=== PATIENT | female | born 1970 | race Two or more races ===

== ENCOUNTER 2024-06-20 11:15 | Inpatient (IN) | payer MEDICAID, OTHER ==
[~2024-06-20] VITALS: Ht 157.5 cm; Wt 73.5 kg
[2024-06-20 11:48] LABS: Basophils # (auto) 0.2 10 ^3/uL (0-0.2); Eosinophils # (auto) 0.1 10 ^3/uL (0-0.8); Eosinophils % (auto) 0.3 % (0.0-7.0); Hemoglobin 13.7 g/dL (12.2-16.2); Nucleated Red Blood Cells % 0.1 %
[2024-06-20 11:50] LABS: Urine Bacteria None Seen /hpf (None Seen)
[2024-06-20 11:50] LABS: Hematocrit 41.3 % (36.0-46.0); Lymphocytes # (auto) 3.5 10 ^3/uL (0.4-5.4); Lymphocytes % (auto) 19.6 % (10.0-50.0); Mean Corpuscular Hemoglobin 24.6 pg (28.0-32.0); Mean Corpuscular Hgb Conc. 33.1 g/dL (32.0-36.0); Mean Corpuscular Volume 74.2 fL (80.0-100.0); Monocytes # (auto) 1.3 10 ^3/uL (0-1.3); Monocytes % (auto) 7.1 % (0.0-12.0); Neutrophils # (auto) 12.8 10 ^3/uL (1.6-8.6); Platelet Count (auto) 518 10^3/uL (140-450); Red Blood Cells 5.56 10^6/uL (4.0-5.20); Red Cell Distribution Width 13.8 % (11.8-14.3); White Blood Cell 17.7 10^3/uL (4.4-10.8)
--- NOTE | 2024-06-20 11:50 | ED.PDOC ---
General HPI Comments 54 year old female presents to the ED with chief complaint of flank pain. Patient reports that she has been experiencing left sided flank pain with associated dysuria and difficulty urinating since yesterday. Patient relays that her flank pain radiates to her suprapubic region and she feels swollen due to not being able to urinate much. Patient denies any fever, chills, hematuria, N/V/D, dizziness, or headache. Chief Complaint: Flank Pain Time Seen by MD: 11:48 Reviewed notes: Nurses Notes, Medications, Allergies Allergies: Coded Allergies: NO KNOWN ALLERGIES (Unverified , 06/20/24) Information Source: Patient Mode of Arrival: Ambulatory Severity: Moderate Inability to void: Moderate Timing: Days Duration: Since onset Has not urinated for: Hours Prehospital treatment: None Onset: Spontaneous Symptoms: Dysuria, Inability to void History of: None Location: (L)Flank associated signs and symptoms: Flank Pain, Dysuria, Inability to Void Past Medical History PAST MEDICAL HISTORY: DM Surgical History: , Hysterectomy 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 FURNITURE SERVICER Hx Family History Family History: Reviewed,noncontributory to illness Social History Smoker: Non-Smoker Alcohol: Denies ETOH Use Drugs: Denies Drug Use Lives In: Home Constitutional: denies: chills, diaphoresis, fatigue, fever, malaise, sweats, weakness, others EENTM: denies: blurred vision, double vision, ear bleeding, ear discharge, ear drainage, ear pain, ear ringing, eye pain, eye redness, hearing loss, mouth pain, mouth swelling, nasal discharge, nose bleeding, nose congestion, nose pain, photophobia, tearing, throat pain, throat swelling, voice changes, others Respiratory: denies: cough, hemoptysis, orthopnea, SOB at rest, shortness of breath, SOB with excertion, stridor, wheezing, others Cardiovascular: denies: chest pain, dizzy spells, diaphoresis, Dyspnea on exertion, edema, irregular heart beat, left arm pain, lightheadedness, palpitations, PND, syncope, others Gastrointestinal: denies: abdomen distended, abdominal pain, blood streaked bowels, constipated, diarrhea, dysphagia, difficulty swallowing, hematemesis, melena, nausea, poor appetite, poor fluid intake, rectal bleeding, rectal pain, vomiting, others Genitourinary: reports: dysuria, flank pain, others (Difficulty urinating); denies: abnormal vagina bleeding, burning, dyspareunia, frequency, hematuria, incontinence, pain, , vagina discharge, urgency Neurological: denies: dizziness, fainting, headache, left sided numbness, left sided weakness, numbness, paresthesia, pre-existing deficit, right sided numbness, right sided weakness, seizure, speech problems, tingling, tremors, weakness, others Musculoskeletal: denies: back pain, gout, joint pain, joint swelling, muscle pain, muscle stiffness, neck pain, others Integumetry: denies: bruises, change in color, change in hair/nails, dryness, laceration, lesions, lumps, rash, wounds, others Allergic/Immunocompromised: denies: Difficulty Healing, Frequent Infections, Hives, Itching, others Hematologic/Lymphatic: denies: anemia, blood clots, easy bleeding, easy bruising, swollen glands, others Endocrine: denies: excessive hunger, excessive sweating, excessive thirst, excessive urination, flushing, intolerance to cold, intolerance to heat, unexplained weight gain, unexplained weight loss, others Psychiatric: denies: anxiety, bipolar disorder, depression, hopeless, panic disorder, schizophrenia, sleepless, suicidal, others All Other Systems: Reviewed and Negative Physical Exam General Appearance: Moderate Distress, Normal HEENT: Normal ENT Inspection, PERRL/EOMI Neck: Full Range of Motion, Non-Tender, Normal, Normal Inspection Respiratory: Chest Non-Tender, Lungs Clear, No Accessory Muscle Use, No Respiratory Distress, Normal Breath Sounds Cardiovascular: No Edema, No JVD, No Murmur, No Gallop, Normal Peripheral Pulses, Regular Rate/Rhythm Breast Exam: Deferred Gastrointestinal: No Organomegaly, Non Tender, No Pulsatile Mass, Normal Bowel Sounds, Soft Genitalia: Deferred Pelvic: Deferred Rectal: Deferred Extremities: No calf tenderness, Normal capillary refill, Normal inspection, Normal range of motion, Non-tender, No pedal edema Musculoskeletal : Apperance: Normal Neurologic: Alert, 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 Was a procedure done?: No Differential Diagnosis Kidney stone (Female): Musculoskeletal pain, Urinary obstruction, Urolithiasis X-Ray, Labs, Meds, VS Vital Signs Date Time Temp Pulse Resp B/P (MAP) Pulse Ox O2 Delivery O2 Flow Rate FiO2 06/20/24 15:35 99.6 101 18 154/98 (116) 96 99.6 06/20/24 15:35 101 18 96 Room Air 06/20/24 11:27 98.0 95 18 145/109 (121) 97 Lab Test 06/20/24 11:35 06/20/24 11:30 Range/Units White Blood Count 17.7 H 4.4-10.8 10^3/uL Red Blood Count 5.56 H 4.0-5.20 10^6/uL Hemoglobin 13.7 12.2-16.2 g/dL Hematocrit 41.3 36.0-46.0 % Mean Corpuscular Volume 74.2 L 80.0-100.0 fL Mean Corpuscular Hemoglobin 24.6 L 28.0-32.0 pg Mean Corpuscular Hemoglobin Concent 33.1 32.0-36.0 g/dL Red Cell Distribution Width 13.8 11.8-14.3 % Platelet Count 518 H 140-450 10^3/uL Mean Platelet Volume 6.7 L 6.9-10.8 fL Neutrophils (%) (Auto) 72.0 37.0-80.0 % Lymphocytes (%) (Auto) 19.6 10.0-50.0 % Monocytes (%) (Auto) 7.1 0.0-12.0 % Eosinophils (%) (Auto) 0.3 0.0-7.0 % Basophils (%) (Auto) 1.0 0.0-2.0 % Neutrophils # (Auto) 12.8 H 1.6-8.6 10 ^3/uL Lymphocytes # (Auto) 3.5 0.4-5.4 10 ^3/uL Monocytes # (Auto) 1.3 0-1.3 10 ^3/uL Eosinophils # (Auto) 0.1 0-0.8 10 ^3/uL Basophils # (Auto) 0.2 0-0.2 10 ^3/uL Nucleated Red Blood Cells 0.1 % Sodium Level 135 L 136-145 mmol/L Potassium Level 3.6 3.5-5.1 mmol/L Chloride Level 98 98-107 mmol/L Carbon Dioxide Level 28 20-31 mmol/L Anion Gap 9 5-15 Blood Urea Nitrogen 9 9-23 mg/dL Creatinine 0.80 0.550-1.02 mg/dL Glomerular Filtration Rate Calc 88 >90 mL/min BUN/Creatinine Ratio 11.3 10.0-20.0 Serum Glucose 335 H 74-106 mg/dL Hemoglobin A1c Pending Calcium Level 10.2 8.7-10.4 mg/dL Urine Color Light-brown Yellow Urine Clarity Ex.turbid Clear Urine pH 8.0 5.0-9.0 Urine Specific [place] 1.017 1.001-1.035 Urine Protein 3+ H Negative Urine Ketones Negative Negative Urine Blood 3+ H Negative /uL Urine Nitrite Negative Negative Urine Bilirubin Negative Negative Urine Urobilinogen Normal Negative mg/dL Urine Leukocyte Esterase 3+ Negative /uL Urine RBC 1088 0 - 4 /hpf Urine WBC 2727 0 - 5 /hpf Urine WBC Clumps Present None Seen /hpf Urine Squamous Epithelial Cells None seen <5 /hpf Urine Bacteria None seen None Seen /hpf Urine Glucose 4+ H Normal mg/dL Current Medications Medications (Trade) Dose Ordered Sig/Kaitlin Route Start Time Stop Time Status Last Admin Piperacillin Sod/ Tazobactam Sod 100 ml @ 100 mls/hr ONCE ONCE IV 06/20/24 14:45 06/20/24 15:44 DC 06/20/24 16:15 Insulin Human Regular (InsuLIN R) 6 units ONCE ONCE IV 06/20/24 14:45 06/20/24 14:46 DC 06/20/24 16:40 Sodium Chloride 1,000 ml @ 1,000 mls/hr Q1H ONCE IV 06/20/24 14:45 06/20/24 15:44 DC 06/20/24 16:24 Ketorolac Tromethamine (Toradol Injection) 30 mg ONCE ONCE IV 06/20/24 14:45 06/20/24 14:47 DC 06/20/24 16:20 Patient alert. Complaining of flank pain. Vitals stable. Answering all questions. Urinalysis shows UTI. Possible kidney stone. Establish intravenous access. Was given fluids. Was given Toradol. Blood sugar elevated. Was given insulin. Reviewed her previous visit. Explained to the patient. Continue cardiac monitoring. Time of 1ST Reevaluation: 12:48 Reevaluation 1ST: Unchanged Patient Education/Counseling: Diagnosis, Treatment Family Education/Counseling: No Family Present Additional Information The following tests were ordered, and results were reviewed by me: UA, CBC, BMP I discussed treatment and results with medical personnel. Departure 1 Departure Time of Disposition: 14:45 Impression: Primary Impression: Uncontrolled diabetes mellitus Qualified Codes: E13.65 - Other specified diabetes mellitus with hyperglycemia Additional Impressions: Urinary tract infection Qualified Codes: N30.01 - Acute cystitis with hematuria Kidney stone Disposition: ADMITTED INPATIENT Admit to: Med Surg Condition: Guarded Critical Care Note Critical Care Time?: Yes (45 min-critical care time only) Stability Stability form required: No Heart Score Heart Score: Heart Score Response (Comments) Value History N/A 0 EKG N/A 0 Age N/A 0 Risk Factors N/A 0 Troponin N/A 0 Total 0 I personally scribed for LEONEL HOOPER MD ([email or web address]) on 06/20/24 at 11:50. Electronically submitted by Lion Victoria ([email or web address]). I personally scribed for LEONEL HOOPER MD ([email or web address]) on 06/20/24 at 17:16. Electronically submitted by Hyun Rios ([email or web address]). LEONEL HOOPER MD Jun 20, 2024 11:50
[2024-06-20 11:56] LABS: Chloride 98 mmol/L (98-107); Potassium 3.6 mmol/L (3.5-5.1)
[2024-06-20 11:57] LABS: Anion Gap 9 (5-15); Calcium 10.2 mg/dL (8.7-10.4); Carbon Dioxide 28 mmol/L (20-31)
[2024-06-20 12:02] LABS: BUN/Creatinine Ratio 11.3 (10.0-20.0); Blood Urea Nitrogen 9 mg/dL (9-23); Sodium 135 mmol/L (136-145)
[2024-06-20 12:18] LABS: Urine Blood 3+ /uL (Negative); Urine Clarity Ex.Turbid (Clear); Urine Color Light-Brown (Yellow); Urine Protein, UAD 3+ (Negative); Urine Specific Gravity 1.017 (1.001-1.035); Urine Squamous Epithelial Cell None Seen /hpf (<5); Urine Urobilinogen Normal (Negative); Urine WBC 2727 /hpf (0 - 5); Urine WBC Clumps PRESENT /hpf (None Seen)
[2024-06-20 12:21] LABS: Glucose 335 mg/dL (74-106)
--- NOTE | 2024-06-20 15:53 | DVH ---
Exam: CT CT AB PEL WO CON-NO ORAL OR IV History: stone Comparison Study: None available at time of dictation. Technique: Multidetector spiral CT of the abdomen and pelvis was performed from lung bases to pubic s ymphysis. Imaging was performed without intravenous contrast. Coronal and sagittal multiplanar refor mats were obtained from the axial data set by the technologist. Radiation Dose : 1. Abdomen/Pelvis: CTDIvol 8.6 mGy, DLP 481.1 mGy*cm. Findings: Evaluation of vasculature and solid organs is limited due to lack of intravenous contrast use. Lung Bases: Lung bases are clear. Visualized portions of the heart and pericardium are unremarkable. Liver: The liver is normal in size. No focal lesions. Diffusely hypoattenuating liver parenchyma con sistent with hepatic steatosis. Gallbladder and Biliary Tree: The gallbladder is unremarkable. No intrahepatic or extrahepatic bilia ry ductal dilatation. Spleen: Unremarkable Pancreas: The pancreas is grossly unremarkable. Adrenal Glands: Unremarkable Kidneys: Kidneys are unremarkable without calculi or hydronephrosis. There is fat stranding surroundi ng the left ureter all the way down to the urinary bladder. GI tract: The stomach is grossly normal in appearance. No evidence of small bowel wall thickening or abnormal dilatation to suggest bowel obstruction. The colon is unremarkable. The appendix is visual ized and is normal. Peritoneum/mesentery/retroperitoneum. No evidence of free intraperitoneal air. No ascites. No evidenc e of suspicious lymphadenopathy. Abdominal Wall: Unremarkable. Vasculature: The visualized abdominal aorta is normal in size and caliber. Evaluation of abdominal a nd pelvic vessels is limited due to lack of intravenous contrast. Urinary Bladder: Grossly unremarkable for degree of distention. Pelvic Organs: Unremarkable Musculoskeletal: No aggressive focal bony lesions, acute fractures or dislocation. IMPRESSION: 1. Left ureteral fat stranding. Findings could be related to a recently passed stone or urinary tract infection. No hydronephrosis. No obstructing stone identified. 2. Hepatic steatosis.
[2024-06-20] MEDS: PIPERACILLIN-TAZOB 3.375GM 100 ML IV ONE (16:15)
[2024-06-20] MEDS: KETOROLAC TROMETH 30 MG/ML 1ML VIAL IV ONE (16:20)
[2024-06-20] MEDS: SODIUM CHLORIDE 0.9% 1,000 ML IV ONE (16:24)
[2024-06-20] MEDS: InsuLIN REG 1unit/0.01ml Soln (100units/ml) IV ONE (16:40)
[2024-06-20] MEDS: ACCU-CHEK COMFORT CURVE STRIP VI SCH (17:00)
[2024-06-20] MEDS ORDERED: MORPHINE SULFATE INJ 2 MG/ml SYRG IV PRN (17:00)
[2024-06-20] MEDS ORDERED: ACETAMINOPHEN 325 MG TAB PO PRN (17:00)
[2024-06-20] MEDS ORDERED: ONDANSETRON HCL 4 MG/2 ML VIAL IV PRN (17:00)
[2024-06-20] MEDS ORDERED: DEXTROSE (50%) 50ML SYRG IV PRN (17:00)
--- NOTE | 2024-06-20 17:13 | DVHHP2 ---
History of Present Illness Reason for Visit: Flank pain dysuria and frequency History of Present Illness Stacy Esquivel is a 54-year-old female with past medical history of diabetes, hysterectomy, and who presents to the ED for left flank pain, dysuria, and frequency x1 day. Patient reports that she is diabetic and takes her metformin. Patient reports that she also has suprapubic pain. She reports that her pain is 9/10 constant and aching. Patient states that there are no alleviating factors. Patient denies any chills, chest pain, abdominal pain, shortness of breath, nausea, vomiting, diarrhea, lightheadedness, and dizziness. Endocrine: Diabetes Past Surgical History: , Hysterectomy Family History: Hypertension, Other (Mom hypertension) Smoke: No ALCOHOL: none Drugs: None Lives: with Family Domestic Violence: Neg Review of Systems Constitutional: No: Fever, Chills, Sweats, Weakness, Malaise, Other Eyes: No: Pain, Vision change, Conjunctivae inflammation, Eyelid inflammation, Other, Redness ENT: No: Ear pain, Ear discharge, Nose pain, Nose discharge, Nose congestion, Mouth pain, Mouth swelling, Throat pain, Throat swelling, Other Respiratory: No: Cough, Dry, Shortness of breath, SOB with excertion, Wheezing, Hemoptysis, Pleuritic Pain, Sputum, Wheezing, Other Cardiovascular: No: Chest Pain, Palpitations, Orthopnea, Paroxysmal Noc. Dyspnea, Edema, Lt Headedness, Other Gastrointestinal: No: Nausea, Vomiting, Abdominal Pain, Diarrhea, Constipation, Melena, Hematochezia, Other Genitourinary: Dysuria, Frequency; No Incontinence, No Hematuria, No Retention; Other (Flank pain) Musculoskeletal: No: other, neck pain, shoulder pain, arm pain, back pain, hand pain, leg pain, foot pain Skin: No: Rash, Lesions, Jaundice, Bruising, Other Neurological: No: Weakness, Numbness, Incoordination, Change in speech, Confusion, Seizures, Other Allergies: Coded Allergies: NO KNOWN ALLERGIES (Unverified , 06/20/24) Exam Vital Signs Vital Signs Date Time Temp Pulse Resp B/P (MAP) Pulse Ox O2 Delivery O2 Flow Rate FiO2 06/20/24 15:35 99.6 101 18 154/98 (116) 96 99.6 06/20/24 15:35 Room Air General Appearance: Alert, Oriented X3, Cooperative, No acute distress HEENT: Atraumatic, PERRLA, EOMI, Mucous membr. moist/pink Respiratory: Clear to auscultation, Normal air movement Cardiovascular: Regular rate, Normal S1, Normal S2, No murmurs Abdominal: Normal bowel sounds, Soft, No hepatospenomegaly, No masses Extremities: No clubbing, No cyanosis, No edema, Normal pulses, No tenderness/swelling Skin: No rashes, No breakdown, No significant lesion Neuro: Normal gait, Normal speech, Strength at 5/5 X4 ext, Normal tone, Se nsation intact Psych/Mental Status: Mental status NL, Mood NL Labs/Xrays Labs Test 06/20/24 11:35 06/20/24 11:30 Range/Units White Blood Count 17.7 H 4.4-10.8 10^3/uL Red Blood Count 5.56 H 4.0-5.20 10^6/uL Hemoglobin 13.7 12.2-16.2 g/dL Hematocrit 41.3 36.0-46.0 % Mean Corpuscular Volume 74.2 L 80.0-100.0 fL Mean Corpuscular Hemoglobin 24.6 L 28.0-32.0 pg Mean Corpuscular Hemoglobin Concent 33.1 32.0-36.0 g/dL Red Cell Distribution Width 13.8 11.8-14.3 % Platelet Count 518 H 140-450 10^3/uL Mean Platelet Volume 6.7 L 6.9-10.8 fL Neutrophils (%) (Auto) 72.0 37.0-80.0 % Lymphocytes (%) (Auto) 19.6 10.0-50.0 % Monocytes (%) (Auto) 7.1 0.0-12.0 % Eosinophils (%) (Auto) 0.3 0.0-7.0 % Basophils (%) (Auto) 1.0 0.0-2.0 % Neutrophils # (Auto) 12.8 H 1.6-8.6 10 ^3/uL Lymphocytes # (Auto) 3.5 0.4-5.4 10 ^3/uL Monocytes # (Auto) 1.3 0-1.3 10 ^3/uL Eosinophils # (Auto) 0.1 0-0.8 10 ^3/uL Basophils # (Auto) 0.2 0-0.2 10 ^3/uL Nucleated Red Blood Cells 0.1 % Sodium Level 135 L 136-145 mmol/L Potassium Level 3.6 3.5-5.1 mmol/L Chloride Level 98 98-107 mmol/L Carbon Dioxide Level 28 20-31 mmol/L Anion Gap 9 5-15 Blood Urea Nitrogen 9 9-23 mg/dL Creatinine 0.80 0.550-1.02 mg/dL Glomerular Filtration Rate Calc 88 >90 mL/min BUN/Creatinine Ratio 11.3 10.0-20.0 Serum Glucose 335 H 74-106 mg/dL Calcium Level 10.2 8.7-10.4 mg/dL Urine Color Light-brown Yellow Urine Clarity Ex.turbid Clear Urine pH 8.0 5.0-9.0 Urine Specific [place] 1.017 1.001-1.035 Urine Protein 3+ H Negative Urine Ketones Negative Negative Urine Blood 3+ H Negative /uL Urine Nitrite Negative Negative Urine Bilirubin Negative Negative Urine Urobilinogen Normal Negative mg/dL Urine Leukocyte Esterase 3+ Negative /uL Urine RBC 1088 0 - 4 /hpf Urine WBC 2727 0 - 5 /hpf Urine WBC Clumps Present None Seen /hpf Urine Squamous Epithelial Cells None seen <5 /hpf Urine Bacteria None seen None Seen /hpf Urine Glucose 4+ H Normal mg/dL Exam: CT CT AB PEL WO CON-NO ORAL OR IV History: stone Comparison Study: None available at time of dictation. Technique: Multidetector spiral CT of the abdomen and pelvis was performed from lung bases to pubic symphysis. Imaging was performed without intravenous contrast. Coronal and sagittal multiplanar reformats were obtained from the axial data set by the technologist. Radiation Dose : 1. Abdomen/Pelvis: CTDIvol 8.6 mGy, DLP 481.1 mGy*cm. Findings: Evaluation of vasculature and solid organs is limited due to lack of intravenous contrast use. Lung Bases: Lung bases are clear. Visualized portions of the heart and pericardium are unremarkable. Liver: The liver is normal in size. No focal lesions. Diffusely hypoattenuating liver parenchyma consistent with hepatic steatosis. Gallbladder and Biliary Tree: The gallbladder is unremarkable. No intrahepatic or extrahepatic biliary ductal dilatation. Spleen: Unremarkable Pancreas: The pancreas is grossly unremarkable. Adrenal Glands: Unremarkable Kidneys: Kidneys are unremarkable without calculi or hydronephrosis. There is fat stranding surrounding the left ureter all the way down to the urinary bladder. GI tract: The stomach is grossly normal in appearance. No evidence of small bowel wall thickening or abnormal dilatation to suggest bowel obstruction. The colon is unremarkable. The appendix is visualized and is normal. Peritoneum/mesentery/retroperitoneum. No evidence of free intraperitoneal air. No ascites. No evidence of suspicious lymphadenopathy. Abdominal Wall: Unremarkable. Vasculature: The visualized abdominal aorta is normal in size and caliber. Evaluation of abdominal and pelvic vessels is limited due to lack of intravenous contrast. Urinary Bladder: Grossly unremarkable for degree of distention. Pelvic Organs: Unremarkable Musculoskeletal: No aggressive focal bony lesions, acute fractures or dislocation. IMPRESSION: 1. Left ureteral fat stranding. Findings could be related to a recently passed stone or urinary tract infection. No hydronephrosis. No obstructing stone identified. 2. Hepatic steatosis. Assessment/Plan Assessment/Plan Assessment/Plan: Leukocytosis likely due to UTI labs ct a/p ua labs am pain management antiemetics IV Antibiotics Uncontrolled diabetes Hemoglobin A1c ISS and Accu-Cheks Obesity Educated patient lifestyle modifications, diet and exercise Left ureteral fat stranding Hepatic steatosis Monitor Follow up outpatient with PCP FEN/PPX diet ivf ambulating not indicated for dvt ppx PUD ppx not indicated no hx of GERD Admit to med surg Discussed plan of care with patient and nurse Home medications reconciled Plan discussed with: Patient My Orders Orders - YURY NICOLE [employer] Procedure Category Date Status Time Hemoglobin A1c LAB 06/20/24 Transmitted 16:57 Glucose Blood PHA 06/20/24 Transmitted (Accu-Chek Comfort 17:00 Mild Sliding Scale PHA 06/20/24 Transmitted 17:00 Dextrose 50% Syringe PHA 06/20/24 Transmitted 17:00 Zosyn Extended PHA 06/20/24 Transmitted Infusion 22:00 Admit ADMIT 06/20/24 Transmitted 16:57 Allergies PEDRO PABLO 06/20/24 Transmitted 16:57 Code Status CODE 06/20/24 Transmitted 16:57 0.9% Ns 1000 Ml PHA 06/20/24 Transmitted 17:00 Hydrocodone-Acet PHA 06/20/24 Transmitted 5/325mg Tab ([place] 17:00 Ondansetron Hcl PHA 06/20/24 Transmitted (Zofran) 17:00 Complete Blood Count LAB 06/21/24 Verified 04:00 Comprehensive LAB 06/21/24 Verified Metabolic Panel 04:00 Cardiac DIET 06/20/24 Transmitted Diet-2gna,Lofat,Lochol Dinner Acetaminophen Tablet PHA 06/20/24 Transmitted (Tylenol Tablet) 17:00 Morphine Sulfate PHA 06/20/24 Transmitted Injection 17:00 Date of Service: Jun 20, 2024 Billing Provider: YURY NICOLE Common Visit Codes: [id number] INP/OBS CARE (HIGH) YURY NICOLE Jun 20, 2024 17:13
[2024-06-20 17:59] VITALS: BP 119/58; PULSE 99; RESP 17; O2SAT 100
[2024-06-20] MEDS: InsuLIN REG 1unit/0.01ml Soln (100units/ml) SC SCH (18:12)
[2024-06-20] MEDS: SODIUM CHLORIDE 0.9% 1,000 ML IV SCH (18:19)
[2024-06-20 21:30] VITALS: BP 141/71; PULSE 76; RESP 18; TEMP 98.6; O2SAT 98
[2024-06-20] MEDS: PIPERACILLIN-TAZOB 3.375GM 100 ML IV SCH (22:47)
[2024-06-21] VITALS (7 sets, daily range): BP systolic 131–139; BP diastolic 69–84; PULSE 69–80; RESP 16–20; TEMP 97.4–99.1; O2SAT 94–98
[2024-06-21 06:59] LABS: Basophils # (auto) 0 10 ^3/uL (0-0.2); Eosinophils # (auto) 0.1 10 ^3/uL (0-0.8); Monocytes # (auto) 1.1 10 ^3/uL (0-1.3); White Blood Cell 12.7 10^3/uL (4.4-10.8)
[2024-06-21 07:01] LABS: Basophils % (auto) 0.3 % (0.0-2.0); Eosinophils % (auto) 0.8 % (0.0-7.0); Hematocrit 34.8 % (36.0-46.0); Hemoglobin 11.6 g/dL (12.2-16.2); Lymphocytes # (auto) 3.6 10 ^3/uL (0.4-5.4); Lymphocytes % (auto) 28.2 % (10.0-50.0); Mean Corpuscular Hemoglobin 24.6 pg (28.0-32.0); Mean Corpuscular Hgb Conc. 33.3 g/dL (32.0-36.0); Monocytes % (auto) 8.8 % (0.0-12.0); Neutrophils # (auto) 7.9 10 ^3/uL (1.6-8.6); Neutrophils % (auto) 61.9 % (37.0-80.0); Nucleated Red Blood Cells % 0.1 %; Platelet Count (auto) 407 10^3/uL (140-450); Red Cell Distribution Width 13.9 % (11.8-14.3)
[2024-06-21 07:10] LABS: Alanine Aminotransferase 10 U/L (7-40); Albumin 3.8 g/dL (3.2-4.8); Alkaline Phosphatase 83 U/L (46-116); Anion Gap 9 (5-15); BUN/Creatinine Ratio 11.7 (10.0-20.0); Bilirubin, Total 0.8 mg/dL (0.2-1.0); Calcium 9.4 mg/dL (8.7-10.4); Carbon Dioxide 25 mmol/L (20-31); Chloride 106 mmol/L (98-107); Sodium 140 mmol/L (136-145); Total Protein 6.7 g/dL (5.7-8.2)
[2024-06-21 07:35] LABS: Aspartate Aminotransferase < 8 U/L (13-40); Blood Urea Nitrogen 7 mg/dL (9-23); Glucose 251 mg/dL (74-106); Potassium 3.5 mmol/L (3.5-5.1)
--- NOTE | 2024-06-21 14:51 | DVHPN2 ---
Reviewed: Care Plan, H&P, Labs, Medications, Previous Orders, Radiology Changes from previous H/P or p: No Changes Eyes: No Pain, No Vision change, No Conjunctivae inflammation, No Eyelid inflammation, No Other, No Redness ENT: No Ear pain, No Ear discharge, No Nose pain, No Nose discharge, No Nose congestion, No Mouth pain, No Mouth swelling, No Throat pain, No Throat swelling, No Other Cardiovascular: No Chest Pain, No Palpitations, No Orthopnea, No Paroxysmal Noc. Dyspnea, No Edema, No Lt Headedness, No Other Respiratory: No Cough, No Dry, No Shortness of breath, No SOB with excertion, No Wheezing, No Hemoptysis, No Pleuritic Pain, No Sputum, No Other Gastrointestinal: No Nausea, No Vomiting, No Abdominal Pain, No Diarrhea, No Constipation, No Melena, No Hematochezia, No Other Genitourinary: Dysuria, Frequency; No Incontinence, No Hematuria, No Retention; Other (Flank pain) Musculoskeletal: No other, No neck pain, No shoulder pain, No arm pain, No back pain, No hand pain, No leg pain, No foot pain Skin: No Rash, No Lesions, No Jaundice, No Bruising, No Other Objective Vitals Vital Signs Date Time Temp Pulse Resp B/P (MAP) Pulse Ox O2 Delivery O2 Flow Rate FiO2 06/21/24 13:00 97.4 70 16 139/72 (94) 98 97.4 06/21/24 08:00 Room Air* 0 21 Intake/Output Intake and Output 06/21/24 07:00 Intake Total 1300 ml Balance 1300 ml Intake Oral 200 ml IV Total 1100 ml # Voids 1 Medications Current Medications Medications Dose Ordered Sig/Kaitlin Route Start Time Stop Time Status Last Admin Dose Admin Diagnostic Test (Pha) 1 strip ACHS 06/20/24 17:00 06/21/24 11:20 1 STRIP Insulin Human Regular ACHS SC 06/20/24 17:00 06/21/24 11:25 8 UNITS Dextrose 50 ml UD PRN IV 06/20/24 17:00 Piperacillin Sod/ Tazobactam Sod 100 ml @ 25 mls/hr Q8HR IV 06/20/24 22:00 06/21/24 13:55 25 MLS/HR Sodium Chloride 1,000 ml @ 60 mls/hr [id number] IV 06/20/24 17:00 06/20/24 18:19 60 MLS/HR Acetaminophen/ Hydrocodone Bitart 1 tab Q4HP PRN PO 06/20/24 17:00 Ondansetron HCl 4 mg Q4HP PRN IV 06/20/24 17:00 Acetaminophen 650 mg Q6HP PRN PO 06/20/24 17:00 Morphine Sulfate 2 mg Q4HPRN PRN IV 06/20/24 17:00 Laboratory Results Laboratory Tests 06/21/24 06:25 Chemistry Test 06/21/24 06:25 Albumin 3.8 g/dL (3.2-4.8) Calcium Level 9.4 mg/dL (8.7-10.4) Total Protein 6.7 g/dL (5.7-8.2) LFT Test 06/21/24 06:25 Alanine Aminotransferase (ALT) 10 U/L (7-40) Alkaline Phosphatase 83 U/L (46-116) Aspartate Amino Transferase (AST) < 8 U/L (13-40) L Total Bilirubin 0.8 mg/dL (0.2-1.0) Urinalysis Test 06/20/24 11:30 Urine Color Light-brown (Yellow) Urine Clarity Ex.turbid (Clear) Urine pH 8.0 (5.0-9.0) Urine Specific [place] 1.017 (1.001-1.035) Urine Protein 3+ (Negative) H Urine Ketones Negative (Negative) Urine Blood 3+ /uL (Negative) H Urine Nitrite Negative (Negative) Urine Bilirubin Negative (Negative) Urine Urobilinogen Normal mg/dL (Negative) Urine Leukocyte Esterase 3+ /uL (Negative) Urine RBC 1088 /hpf (0 - 4) Urine WBC 2727 /hpf (0 - 5) Urine WBC Clumps Present /hpf (None Seen) Urine Squamous Epithelial Cells None seen /hpf (<5) Urine Bacteria None seen /hpf (None Seen) Urine Glucose 4+ mg/dL (Normal) H Labs and/or images reviewed: Labs reviewed by me, Image(s) reviewed by me Assessment/Plan Assessment/Plan Sepsis secondary to acute urinary tract infection: Blood cultures urine cultures Rocephin Acute pyelonephritis: CT abdomen pelvis without contrast shows possible recently passed stone Uncontrolled diabetes with a glucose of 335 A1c 11.3: Aggressive insulin sliding scale , diabetic education Acute left flank pain Acute dehydration: IV fluids Time spent 35 minutes Plan discussed with: Patient My Orders Orders - SHAHID ANTUNEZ MD Procedure Category Date Status Time Blood Culture ZANA 06/21/24 Transmitted 14:45 Urine Bacterial ZANA 06/21/24 Transmitted Culture 14:45 Date of Service: Jun 21, 2024 Billing Provider: SHAHID ANTUNEZ MD Common Visit Codes: [id number] INP/OBS CARE(HIGH) SHAHID ANTUNEZ MD Jun 21, 2024 14:51
[2024-06-21] MEDS: cefTRIAXone 1GM/50ML D5W 50 ML IV ONE (16:34)
[2024-06-22 05:00] VITALS: BP 142/80; PULSE 63; RESP 17; TEMP 97.5; O2SAT 96
[2024-06-22 08:00] VITALS: PULSE 72; RESP 18; O2SAT 96
[2024-06-22 09:00] VITALS: BP 131/84; PULSE 73; RESP 17; TEMP 98.1; O2SAT 98
[2024-06-22] MEDS: cefTRIAXone 1GM/50ML D5W 50 ML IV SCH (09:08)
[2024-06-22] MEDS: HYDROcodone-ACET 5/325MG TAB PO PRN (09:09)
--- NOTE | 2024-06-22 10:07 | DVHPN2 ---
Reviewed: Care Plan, H&P, Labs, Medications, Previous Orders, Radiology Changes from previous H/P or p: No Changes Eyes: No Pain, No Vision change, No Conjunctivae inflammation, No Eyelid inflammation, No Other, No Redness ENT: No Ear pain, No Ear discharge, No Nose pain, No Nose discharge, No Nose congestion, No Mouth pain, No Mouth swelling, No Throat pain, No Throat swelling, No Other Cardiovascular: No Chest Pain, No Palpitations, No Orthopnea, No Paroxysmal Noc. Dyspnea, No Edema, No Lt Headedness, No Other Respiratory: No Cough, No Dry, No Shortness of breath, No SOB with excertion, No Wheezing, No Hemoptysis, No Pleuritic Pain, No Sputum, No Other Gastrointestinal: No Nausea, No Vomiting, No Abdominal Pain, No Diarrhea, No Constipation, No Melena, No Hematochezia, No Other Genitourinary: Dysuria, Frequency; No Incontinence, No Hematuria, No Retention; Other (Flank pain) Musculoskeletal: No other, No neck pain, No shoulder pain, No arm pain, No back pain, No hand pain, No leg pain, No foot pain Skin: No Rash, No Lesions, No Jaundice, No Bruising, No Other Objective Vitals Vital Signs Date Time Temp Pulse Resp B/P (MAP) Pulse Ox O2 Delivery O2 Flow Rate FiO2 06/22/24 08:00 72 18 96 Room Air* 0 21 06/22/24 05:00 97.5 142/80 (100) 97.5 Intake/Output Intake and Output 06/22/24 07:00 Intake Total 2520 ml Balance 2520 ml Intake Oral 1700 ml IV Total 820 ml # Voids 9 Medications Current Medications Medications Dose Ordered Sig/Kaitlin Route Start Time Stop Time Status Last Admin Dose Admin Diagnostic Test (Pha) 1 strip ACHS 06/20/24 17:00 06/22/24 06:37 1 STRIP Insulin Human Regular ACHS SC 06/20/24 17:00 06/22/24 06:37 2 UNITS Dextrose 50 ml UD PRN IV 06/20/24 17:00 Sodium Chloride 1,000 ml @ 60 mls/hr [id number] IV 06/20/24 17:00 06/22/24 06:37 60 MLS/HR Acetaminophen/ Hydrocodone Bitart 1 tab Q4HP PRN PO 06/20/24 17:00 06/22/24 09:09 1 TAB Ondansetron HCl 4 mg Q4HP PRN IV 06/20/24 17:00 Acetaminophen 650 mg Q6HP PRN PO 06/20/24 17:00 Morphine Sulfate 2 mg Q4HPRN PRN IV 06/20/24 17:00 Ceftriaxone Sodium 50 ml @ 100 mls/hr DAILY@09 IV 06/22/24 09:00 06/22/24 09:08 100 MLS/HR Laboratory Results Laboratory Tests 06/21/24 06:25 Urinalysis Test 06/20/24 11:30 Urine Color Light-brown (Yellow) Urine Clarity Ex.turbid (Clear) Urine pH 8.0 (5.0-9.0) Urine Specific [place] 1.017 (1.001-1.035) Urine Protein 3+ (Negative) H Urine Ketones Negative (Negative) Urine Blood 3+ /uL (Negative) H Urine Nitrite Negative (Negative) Urine Bilirubin Negative (Negative) Urine Urobilinogen Normal mg/dL (Negative) Urine Leukocyte Esterase 3+ /uL (Negative) Urine RBC 1088 /hpf (0 - 4) Urine WBC 2727 /hpf (0 - 5) Urine WBC Clumps Present /hpf (None Seen) Urine Squamous Epithelial Cells None seen /hpf (<5) Urine Bacteria None seen /hpf (None Seen) Urine Glucose 4+ mg/dL (Normal) H Labs and/or images reviewed: Labs reviewed by me, Image(s) reviewed by me Assessment/Plan Assessment/Plan Sepsis secondary to acute urinary tract infection: Blood cultures urine cultures Rocephin Acute pyelonephritis: CT abdomen pelvis without contrast shows possible recently passed stone Uncontrolled diabetes with a glucose of 335 A1c 11.3: Aggressive insulin sliding scale , diabetic education Acute left flank pain Acute dehydration: IV fluids Time spent 35 minutes Will DC after urine culture report Plan discussed with: Patient My Orders Orders - SHAHID ANTUNEZ MD Procedure Category Date Status Time Blood Culture ZANA 06/21/24 In Process 14:45 Urine Bacterial ZANA 06/21/24 In Process Culture 14:45 Ceftriaxone 1gm/50ml PHA 06/22/24 In Process D5w (Rocephin) 09:00 Date of Service: Jun 22, 2024 Billing Provider: SHAHID ANTUNEZ MD Common Visit Codes: [id number] INP/OBS CARE(HIGH) SHAHID ANTUNEZ MD Jun 22, 2024 10:07
[2024-06-22 13:00] VITALS: BP 132/77; PULSE 73; RESP 17; TEMP 97.9; O2SAT 98
[2024-06-22 17:00] VITALS: BP 137/76; PULSE 64; RESP 17; TEMP 98; O2SAT 98
[2024-06-22 21:00] VITALS: BP 156/76; PULSE 65; RESP 17; TEMP 98; O2SAT 98
[2024-06-23] VITALS (7 sets, daily range): BP systolic 137–148; BP diastolic 74–82; PULSE 58–67; RESP 16–18; TEMP 97.9–98.6; O2SAT 95–98
--- NOTE | 2024-06-23 09:24 | DVHPN2 ---
Reviewed: Care Plan, H&P, Labs, Medications, Previous Orders, Radiology Changes from previous H/P or p: No Changes Eyes: No Pain, No Vision change, No Conjunctivae inflammation, No Eyelid inflammation, No Other, No Redness ENT: No Ear pain, No Ear discharge, No Nose pain, No Nose discharge, No Nose congestion, No Mouth pain, No Mouth swelling, No Throat pain, No Throat swelling, No Other Cardiovascular: No Chest Pain, No Palpitations, No Orthopnea, No Paroxysmal Noc. Dyspnea, No Edema, No Lt Headedness, No Other Respiratory: No Cough, No Dry, No Shortness of breath, No SOB with excertion, No Wheezing, No Hemoptysis, No Pleuritic Pain, No Sputum, No Other Gastrointestinal: No Nausea, No Vomiting, No Abdominal Pain, No Diarrhea, No Constipation, No Melena, No Hematochezia, No Other Genitourinary: Dysuria, Frequency; No Incontinence, No Hematuria, No Retention; Other (Flank pain) Musculoskeletal: No other, No neck pain, No shoulder pain, No arm pain, No back pain, No hand pain, No leg pain, No foot pain Skin: No Rash, No Lesions, No Jaundice, No Bruising, No Other Objective Vitals Vital Signs Date Time Temp Pulse Resp B/P (MAP) Pulse Ox O2 Delivery O2 Flow Rate FiO2 06/23/24 05:00 98.4 59 16 137/82 (100) 98 98.4 06/22/24 20:00 Room Air* 0 21 Intake/Output Intake and Output 06/23/24 07:00 Intake Total 2485 ml Balance 2485 ml Intake Oral 1775 ml IV Total 710 ml # Voids 7 Medications Current Medications Medications Dose Ordered Sig/Kaitlin Route Start Time Stop Time Status Last Admin Dose Admin Diagnostic Test (Pha) 1 strip ACHS 06/20/24 17:00 06/23/24 06:02 1 STRIP Insulin Human Regular ACHS SC 06/20/24 17:00 06/23/24 06:04 4 UNITS Dextrose 50 ml UD PRN IV 06/20/24 17:00 Sodium Chloride 1,000 ml @ 60 mls/hr [id number] IV 06/20/24 17:00 06/22/24 06:37 60 MLS/HR Acetaminophen/ Hydrocodone Bitart 1 tab Q4HP PRN PO 06/20/24 17:00 06/22/24 21:57 1 TAB Ondansetron HCl 4 mg Q4HP PRN IV 06/20/24 17:00 Acetaminophen 650 mg Q6HP PRN PO 06/20/24 17:00 Morphine Sulfate 2 mg Q4HPRN PRN IV 06/20/24 17:00 Ceftriaxone Sodium 50 ml @ 100 mls/hr DAILY@09 IV 06/22/24 09:00 06/23/24 08:08 100 MLS/HR Laboratory Results Laboratory Tests 06/21/24 06:25 Urinalysis Test 06/20/24 11:30 Urine Color Light-brown (Yellow) Urine Clarity Ex.turbid (Clear) Urine pH 8.0 (5.0-9.0) Urine Specific [place] 1.017 (1.001-1.035) Urine Protein 3+ (Negative) H Urine Ketones Negative (Negative) Urine Blood 3+ /uL (Negative) H Urine Nitrite Negative (Negative) Urine Bilirubin Negative (Negative) Urine Urobilinogen Normal mg/dL (Negative) Urine Leukocyte Esterase 3+ /uL (Negative) Urine RBC 1088 /hpf (0 - 4) Urine WBC 2727 /hpf (0 - 5) Urine WBC Clumps Present /hpf (None Seen) Urine Squamous Epithelial Cells None seen /hpf (<5) Urine Bacteria None seen /hpf (None Seen) Urine Glucose 4+ mg/dL (Normal) H Microbiology Microbiology Date/Time Source Procedure Growth Status 06/21/24 16:46 Blood Blood Culture - Preliminary NO GROWTH AFTER 24 HOURS OF INCUBATION. Resulted Labs and/or images reviewed: Labs reviewed by me, Image(s) reviewed by me Assessment/Plan Assessment/Plan Sepsis secondary to acute urinary tract infection: Blood cultures negative, urine cultures pending, continue Rocephin Acute pyelonephritis: CT abdomen pelvis without contrast shows possible recently passed stone Uncontrolled diabetes with a glucose of 335 A1c 11.3: Aggressive insulin sliding scale , diabetic education Acute left flank pain Acute dehydration: IV fluids Time spent 35 minutes Will DC after urine culture report Plan discussed with: Patient Date of Service: Jun 23, 2024 Billing Provider: SHAHID ANTUNEZ MD Common Visit Codes: [id number] INP/OBS CARE(HIGH) SHAHID ANTUNEZ MD Jun 23, 2024 09:24
[2024-06-24 01:00] VITALS: BP 150/76; PULSE 70; RESP 18; TEMP 98.8; O2SAT 99
[2024-06-24 05:00] VITALS: BP 130/70; PULSE 76; RESP 18; TEMP 98.8; O2SAT 96
[2024-06-24 09:50] VITALS: BP 143/76; PULSE 59; RESP 17; TEMP 98.2; O2SAT 96
[2024-06-24 12:26] LABS: Basophils # (auto) 0.1 10 ^3/uL (0-0.2); Eosinophils # (auto) 0.1 10 ^3/uL (0-0.8); Hemoglobin 12.9 g/dL (12.2-16.2); Neutrophils # (auto) 4.5 10 ^3/uL (1.6-8.6); Red Blood Cells 5.24 10^6/uL (4.0-5.20)
[2024-06-24] MEDS ORDERED: LEVO500T91 PO (12:26)
[2024-06-24 12:28] LABS: Eosinophils % (auto) 1.3 % (0.0-7.0); Hematocrit 38.9 % (36.0-46.0); Lymphocytes # (auto) 3.7 10 ^3/uL (0.4-5.4); Lymphocytes % (auto) 41.2 % (10.0-50.0); Mean Corpuscular Hemoglobin 24.6 pg (28.0-32.0); Mean Corpuscular Hgb Conc. 33.2 g/dL (32.0-36.0); Mean Corpuscular Volume 74.1 fL (80.0-100.0); Monocytes # (auto) 0.5 10 ^3/uL (0-1.3); Monocytes % (auto) 6.1 % (0.0-12.0); Neutrophils % (auto) 50.4 % (37.0-80.0); Platelet Count (auto) 541 10^3/uL (140-450); Red Cell Distribution Width 13.8 % (11.8-14.3); White Blood Cell 8.9 10^3/uL (4.4-10.8)
[2024-06-24 12:58] LABS: Chloride 104 mmol/L (98-107); Potassium 4.2 mmol/L (3.5-5.1); Sodium 137 mmol/L (136-145)
[2024-06-24 12:59] LABS: Anion Gap 9 (5-15); Carbon Dioxide 24 mmol/L (20-31)
[2024-06-24 13:00] LABS: Calcium 9.9 mg/dL (8.7-10.4)
[2024-06-24 13:05] LABS: BUN/Creatinine Ratio 13.3 (10.0-20.0); Blood Urea Nitrogen 10 mg/dL (9-23)
[2024-06-24 13:11] LABS: Glucose 338 mg/dL (74-106)
--- NOTE | 2024-06-24 14:28 | DVHDS2 ---
Discharge Summary Date of Admission Jun 20, 2024 at 16:57 Date of Discharge: Jun 24, 2024 Admitting Diagnosis Complicated cystitis Labs/Diagnostic Data: Laboratory Results Test 06/24/24 12:39 06/24/24 11:30 06/21/24 06:25 06/20/24 11:35 POC Glucose 290 mg/dl (70-106) White Blood Count 8.9 10^3/uL (4.4-10.8) Red Blood Count 5.24 10^6/uL (4.0-5.20) Hemoglobin 12.9 g/dL (12.2-16.2) Hematocrit 38.9 % (36.0-46.0) Mean Corpuscular Volume 74.1 fL (80.0-100.0) Mean Corpuscular Hemoglobin 24.6 pg (28.0-32.0) Mean Corpuscular Hemoglobin Concent 33.2 g/dL (32.0-36.0) Red Cell Distribution Width 13.8 % (11.8-14.3) Platelet Count 541 10^3/uL (140-450) Mean Platelet Volume 7.0 fL (6.9-10.8) Neutrophils (%) (Auto) 50.4 % (37.0-80.0) Lymphocytes (%) (Auto) 41.2 % (10.0-50.0) Monocytes (%) (Auto) 6.1 % (0.0-12.0) Eosinophils (%) (Auto) 1.3 % (0.0-7.0) Basophils (%) (Auto) 1.0 % (0.0-2.0) Neutrophils # (Auto) 4.5 10 ^3/uL (1.6-8.6) Lymphocytes # (Auto) 3.7 10 ^3/uL (0.4-5.4) Monocytes # (Auto) 0.5 10 ^3/uL (0-1.3) Eosinophils # (Auto) 0.1 10 ^3/uL (0-0.8) Basophils # (Auto) 0.1 10 ^3/uL (0-0.2) Nucleated Red Blood Cells 0.0 % Sodium Level 137 mmol/L (136-145) Potassium Level 4.2 mmol/L (3.5-5.1) Chloride Level 104 mmol/L (98-107) Carbon Dioxide Level 24 mmol/L (20-31) Anion Gap 9 (5-15) Blood Urea Nitrogen 10 mg/dL (9-23) Creatinine 0.75 mg/dL (0.550-1.02) Glomerular Filtration Rate Calc 95 mL/min (>90) BUN/Creatinine Ratio 13.3 (10.0-20.0) Serum Glucose 338 mg/dL (74-106) Calcium Level 9.9 mg/dL (8.7-10.4) Total Bilirubin 0.8 mg/dL (0.2-1.0) Aspartate Amino Transferase (AST) < 8 U/L (13-40) Alanine Aminotransferase (ALT) 10 U/L (7-40) Alkaline Phosphatase 83 U/L (46-116) Total Protein 6.7 g/dL (5.7-8.2) Albumin 3.8 g/dL (3.2-4.8) Hemoglobin A1c 11.3 % A1C (<5.7) Test 06/20/24 11:30 Urine Color Light-brown (Yellow) Urine Clarity Ex.turbid (Clear) Urine pH 8.0 (5.0-9.0) Urine Specific [place] 1.017 (1.001-1.035) Urine Protein 3+ (Negative) Urine Ketones Negative (Negative) Urine Blood 3+ /uL (Negative) Urine Nitrite Negative (Negative) Urine Bilirubin Negative (Negative) Urine Urobilinogen Normal mg/dL (Negative) Urine Leukocyte Esterase 3+ /uL (Negative) Urine RBC 1088 /hpf (0 - 4) Urine WBC 2727 /hpf (0 - 5) Urine WBC Clumps Present /hpf (None Seen) Urine Squamous Epithelial Cells None seen /hpf (<5) Urine Bacteria None seen /hpf (None Seen) Urine Glucose 4+ mg/dL (Normal) Other Laboratory Tests 06/24/24 11:30 Brief Hx & Hospital Course: History of Present Illness Stacy Esquivel is a 54-year-old female with past medical history of diabetes, hysterectomy, and who presents to the ED for left flank pain, dysuria, and frequency x1 day. Patient reports that she is diabetic and takes her metformin. Patient reports that she also has suprapubic pain. She reports that her pain is 9/10 constant and aching. Patient states that there are no alleviating factors. Patient denies any chills, chest pain, abdominal pain, shortness of breath, nausea, vomiting, diarrhea, lightheadedness, and dizziness. Course of hospitalization: Patient had CT scan of the abdomen and pelvis. Questionable pyelonephritis versus possible stone passing. Patient was started on IV hydration, antibiotic therapy. Patient is symptoms have improved. She states that her urine is no longer with streaks of blood, or with odor. Clinically she states that she feels better and would like to be discharged home. Urine cultures currently without any growth. Patient will be continued on antibiotic therapy with Levaquin 500 mg p.o. x5 days. She will continue with her home medication and metformin for diabetes mellitus. An appointment with the discharge Clinic will be made for one week. All questions answered. Physical examination General: Alert and Oriented x3. No acute distress. Well-nourished. Eyes: EOMI. Anicteric. HENT: Moist mucous membranes. Lungs: Clear to auscultation bilaterally. No accessory muscle use. Cardiovascular: Regular rate and rhythm. No murmur. No JVD. Abdomen: Soft, non-tender and non-distended. No palpable masses. Extremities: No edema. Non-tender. Skin: No rashes or lesions. Warm. Neurologic: No focal neurological deficits. CN II-XII grossly intact, but not individually tested. Psychiatric: Cooperative. Appropriate mood and affect. Total time spent with patient discussing and formulating plan of care: 35 minutes. This medical document was created using an electronic medical record system with [employer] dictation system. Although this document has been carefully reviewed, there may still be some phonetic and typographical errors. These areas are purely typographical due to imperfections of the software programs, and do not reflect any compromise in the patient's medical care. Condition at Discharge: Fair Final Diagnosis/Problems List Complicated cystitis Secondary Diagnosis: Sepsis Pyelonephritis Diabetes mellitus Discharge Disposition: Home Discharge Instruct/Medications Diet: Consistent carbohydrate Activity: No Restrictions, As Tolerated Follow Up/Referral: [place] clinic in 1 week Medications: Levaquin 500mg po daily x 5 days 36 Discharge Statement: "Patient was advised to return to the ER or call 911 if any headaches, dizziness, shortness of breath, chest pain, abdominal pain, bleeding, fevers, or worsening of medical condition. Patient was counseled about treatment plan, medications, possible side effects, patientverbalized understanding. All questions were answered to the best of my ability. This discharge took greater then 30 minutes in planning, reviewing documentation, counseling the patient, and discussing with other team members." ASSESSMENT ASSESSMENT Assessment Complicated cystitis Date of Service: Jun 24, 2024 Billing Provider: LEANNA BEY NP Common Visit Codes: [id number] DISCH DAY >30min LEANNA BEY NP Jun 24, 2024 14:28
--- NOTE | 2024-06-24 14:32 | MEDREC ---
[facility] ASP Intervention Section I [facility] ASP Intervention: Deescalate AB based on CS (LEUKOCYTOSIS RESOLVED - AFEBRILE - FINAL URINE CULTURE WITH NO GROWTH - PLEASE CONSIDER D/C CEFTRIAXONE) KATELYN ALEXIS PHARMACIST Jun 24, 2024 14:32
[2024-06-24 14:41] VITALS: BP 150/72; PULSE 63; RESP 17; TEMP 98.3; O2SAT 95
== END 2024-06-24 16:45 | disposition home or self-care (01) | DRG 720 ==
LOC: ER 11:15 → OVERFLOW 16:57 → CENTRAL 23:20
PROVIDERS: ATTEND Family Medicine
DX: A41.9 Sepsis, unspecified organism (principal); N30.90 Cystitis, unspecified without hematuria; E11.65 Type 2 diabetes mellitus with hyperglycemia; N10 Acute pyelonephritis; E66.9 Obesity, unspecified; E86.0 Dehydration; Z90.710 Acquired absence of both cervix and uterus; Z82.49 Family history of ischemic heart disease and other diseases of the circulatory system; Z68.29 Body mass index [BMI] 29.0-29.9, adult
CPT/HCPCS: 36415; 74176; 80048; 80053; 81001; 82962; 83036; 85025; 87040; 87086; 96365; 96375; 99291; G0378; J1815; J1885; J2543